=== PATIENT | female | born 1985 ===

== ENCOUNTER 2016-07-16 08:29 | Day surgery (SDC) | payer MEDICAID ==
[2016-07-16 08:42] VITALS: BMI 31.6
[2016-07-16] MEDS ORDERED: Propofol 10 mg/ml Inj (20 ML) ONE ×2 (09:35→09:45)
[2016-07-16 13:47] VITALS: TEMP 97.3
[2016-07-16 14:03] VITALS: BP 107/60; PULSE 55; RESP 18; O2SAT 99
== END 2016-07-16 11:15 | disposition home or self-care (01) ==
LOC: C.ENDO 08:29
PROVIDERS: ATTEND Internal Medicine Gastroenterology
DX: K29.70 Gastritis, unspecified, without bleeding (principal)
CPT/HCPCS: 43239; 84703; 88305; 88313; 88342; J2001; J2704